=== PATIENT | male | born 1970 | race Caucasian/White ===

== ENCOUNTER → 2020-09-08 | Outpatient (CLI) | payer BC ==
--- NOTE | 2020-09-08 15:04 | CT ---
EXAMINATION TYPE: CT abdomen pelvis wo/w con DATE OF EXAM: 09/08/2020 COMPARISON: None. HISTORY: Diverticulosis per order. Left-sided pain. CT DLP: 2922.30 mGycm, Automated Exposure Control for Dose Reduction was Utilized. CONTRAST: CT scan of the abdomen and pelvis is performed without oral and without and with IV Contrast, patient injected with 100 ml mL of Isovue 300. FINDINGS: LUNG BASES: No significant abnormality is appreciated. LIVER/GB: Noncontrast images show visualized liver heterogeneously hypodense consistent with diffuse fatty infiltration. PANCREAS: No significant abnormality is seen. SPLEEN: No significant abnormality is seen. ADRENALS: No significant abnormality is seen. KIDNEYS: Noncontrast images show no renal calculi bilaterally. Postcontrast images show symmetric cor tical medullary uptake and excretion without hydronephrosis seen bilaterally. BOWEL: Slightly suboptimal evaluation of bowel without enteric contrast. No suspicious small or large bowel dilatation. Short length appendix unremarkable from base of cecum. No significant diverticulos is or CT evidence for acute diverticulitis. Redundant sigmoid colon is present. PROSTATE/SEMINAL VESICLES: No gross abnormality seen. LYMPH NODES: No greater than 1cm abdominal or pelvic lymph nodes are appreciated. OSSEOUS STRUCTURES: Mild to moderate disc space narrowing L5-S1 level. Mild to moderate facet arthrop athy lower lumbar levels. Mild axial joint space loss and acetabular spurring of both hips. OTHER: Small fat-containing umbilical hernia. Small to moderate-sized fat-containing left inguinal he rnia. IMPRESSION: No significant diverticulosis or CT evidence for acute diverticulitis. No ventral wall he rnia identified. No significant acute finding is seen to account for patient's clinical symptoms.
== END | disposition home or self-care (01) ==
LOC: RADCTMAIN 14:11
PROVIDERS: ATTEND Family Medicine
DX: K57.90 Diverticulosis of intestine, part unspecified, without perforation or abscess without bleeding (principal)
CPT/HCPCS: 74178; Q9967

== ENCOUNTER → 2024-06-18 | Outpatient (CLI) | payer BC ==
--- NOTE | 2024-06-19 19:51 | MR ---
EXAMINATION TYPE: MR lumbar spine wo con DATE OF EXAM: 06/18/2024 COMPARISON: 08/07/2016 HISTORY: Low back pain into left side, Worse in the last 2 weeks, CONTRAST: 0 mL intravenous Gadavist. TECHNIQUE: Multiplanar, multisequence images of the lumbar spine were acquired. FINDINGS: Cord ends at the T12-L1 level L5-S1: There is a moderate sized left paracentral disc herniation extending into the foramen and L5-S 1. This has minimal anterior lateral thecal sac compression. This is likely causing left S1 exiting n erve root displacement and/or compression. Correlate with radicular symptoms. L4-L5: No focal disc herniation or significant disc bulge. No spinal canal stenosis. Neural foramen are patent. Facet hypertrophy is present L3-L4: No focal disc herniation or significant disc bulge. No spinal canal stenosis. Neural foramen are patent. Facet hypertrophy is present, greater on the left. L2-L3: No focal disc herniation or significant disc bulge. No spinal canal stenosis. Neural foramen are patent. L1-L2: No focal disc herniation or significant disc bulge. No spinal canal stenosis. Neural foramen are patent. T12-L1: No focal disc herniation or significant disc bulge. No spinal canal stenosis. Neural forame n are patent. IMPRESSION: 1. Moderate left paracentral disc herniation L5-S1 slightly displacing the left S1 nerve root. Correl ate with radicular symptoms. [facility], Workstation: [facility], 06/19/2024 7:49 PM
== END | disposition home or self-care (01) ==
LOC: RADMRIMAIN 21:15
PROVIDERS: ATTEND Family Medicine
DX: M51.27 Other intervertebral disc displacement, lumbosacral region (principal)
CPT/HCPCS: 72148